=== PATIENT | male | born 1950 | race Caucasian/White ===

== ENCOUNTER → 2022-06-15 11:00 | Outpatient (CLI) | payer MEDICARE, SELFPAY ==
--- NOTE | ~2022-06-15 | CT_ITS ---
EXAMINATION: CT soft tissue neck wo con DATE: 06/15/2022 11:20 INDICATION: Right-sided otalgia. Pain at the right angle of the mandible. TECHNIQUE: Computed tomography (CT) of the neck was performed without intravenous contrast. Automated exposure control and iterative reconstruction technique were employed. The dose-length product was 4 35.74 mGy-cm. COMPARISON: None FINDINGS: The parotid glands are normal. There are no pathologically enlarged lymph nodes. The parana tawana sinuses are clear. The mastoid air cells are normal. 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 There is severe cervical spondylosis. No untreated dental disease is identified. IMPRESSION: 1. No specific etiology for the patient's symptoms. Reviewed, dictated and finalized at location A.
== END ==
PROVIDERS: PCP Internal Medicine; Visit Provider Otolaryngology
DX: H92.01 Otalgia, right ear (principal)
CPT/HCPCS: 70490

== ENCOUNTER 2025-02-04 10:10 | Day surgery (SDC) | payer MEDICARE, SELFPAY ==
[2025-01-14 11:50] VITALS: BMI 21.1
--- NOTE | 2025-02-04 07:08 | WPDANESEPPF ---
Anes - Initial Pre Proc Eval Procedure: Operation Date: 02/04/25 12:00 Proposed Procedures p Diagnostic Colonoscopy - David Roberson MD Date/Time: 02/04/25 07:08 Surgeon: David Roberson MD Pre Op Diagnosis: Family History of Colon Cancer Patient Data Age: 74 Gender: M Height: 1.79 m Weight: 67.8 kg Allergies Allergy/AdvReac Type Severity Reaction Status Date / Time No Known Allergies Allergy Verified 02/04/25 10:37 Home Medications ?Medication ?Instructions ?Recorded ?Confirmed ?Type No Home Medications 01/14/25 01/14/25 History Patient hx anesthesia problems: none Family hx anesthesia problems: none Results Review: All pre-operative results and documents have been reviewed as part of the pre-operative evaluation. [facility] Family History Family History (Updated 02/09/16 @ 13:29 by DOCTOR UNKNOWN) Mother Family history of rheumatoid arthritis Family history of heart disease in male family member before age 55 Patient's mother is Father Carcinoma of colon Patient's father is Social History Social History (Updated 02/04/25 @ 12:19 by Rosalio Marsh, ) Smoking status: Never smoker Second hand tobacco smoke exposure: No Alcohol intake: current Substance use: current Substance use type: does not use and marijuana Other substance usage details: occasional Living arrangements: with family Spiritual care concerns: No Anes - Eval Final PreProcedure Day of Procedure 02/04/25 07:08 Patient weight: normal Heart: regular rate and rhythm Lungs: clear to auscultation and normal air movement Airway: Mallampati scale class II Neurological: alert and oriented Last oral intake: >/= 8 hours ASA classification: II Emergent: no Anesthetic plan: proceed Anesthesia type and monitoring: general GIVS and standard monitoring Results Review: All pre-operative results and documents have been reviewed as part of the pre-operative evaluation. Informed Consent: The patient's anesthetic plan and its attendant risks and benefits were discussed with the patient/family/POA. Questions were solicited and answers provided to the satisfaction of the patient/family/POA.
[2025-02-04 10:48] VITALS: BP 108/71; PULSE 65; RESP 16; TEMP 36.5; O2SAT 99; BMI 20.9
[2025-02-04] MEDS: LACTATED RINGERS 1,000 ML 150 ML IV CONT (11:01)
--- OUTSIDE RECORDS SUMMARY | 2025-02-04 11:54 | XMS_ITS | Referral Summary ---
Author Organization [facility] Address [address] [place] [address] Care Team Providers Care Lens Coating Technician Name Role Phone Shawn Nails MD Primary Care Located within [facility] Encounters Date Type Department Care Team Description 01/27/2025 Results Follow-Up [facility] Primary Care at [address] [phone] Shawn Nails MD 01/24/2025 8:24 AM CDT - 01/24/2025 11:59 PM CDT Hospital Encounter [address] [address] Screening for hyperlipidemia; Screening for diabetes mellitus Discharge Disposition: Discharge to home or self care 01/24/2025 8:30 AM CDT Lab [facility] Outpatient Lab at [address] [phone] Osteoarthritis of knee (Primary Dx) 01/07/2025 1:30 PM CDT Office Visit [facility] Primary Care at [address] [phone] Shawn Nails MD Encounter to establish care with new doctor (Primary Dx); Need for tetanus booster; Screening for hyperlipidemia; Screening for diabetes mellitus from Last 3 Months Allergies No known active allergies Medications No known medications Active Problems Problem Noted Date Diagnosed Date Encounter to establish care with new doctor 12/16 Need for tetanus booster 01/07/2025 Acute medial meniscus tear of right knee 019 Overview (01/18/2019): Added automatically from request for surgery [id number] Osteoarthritis of knee 11/25/2016 Immunizations Immunization Administration Dates Next Due Influenza, Quad, Adjuvantate d, Intramuscular 07/31/2021 Influenza, Quadrivalent, Nicole l Culture-based MDCK, Preservative Free, Antibiotic Free, Intramuscular 07/15/2020 Influenza, Trivalent, Adjuva nted, Intramuscular 08/02/2018 Pneumococcal Polysaccharide PPV23 07/31/2021 ZOSTER Recombinant 08/02/2018,05/09/2018, 018 Social History Tobacco Use Types Packs/Day Years Used Date Smoking Tobacco: Never Smokeless Tobacco: Never Alcohol Use Standard Drinks/Week Comments Yes 2 (1 standard drink = 0.6 oz pur e alcohol) PHQ-2 Answer Date Recorded PHQ-2 Total Score (If total score is 3 or more points, staff should administer the PHQ-9) 0 01/07/2025 Sex and Gender Information Value Date Recorded Sex Assigned at Not on file 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 Gender Identity Not on file Sexual Orientation Not on file Last Filed Vital Signs Vital Sign Reading Time Taken Comments Blood Pressure 98/62 01/07/2025 12:52 PM CDT Pulse 57 01/07/2025 12:52 PM CDT Temperature 36.2 C (97.2 F) 01/07/2025 12:52 PM CDT Respiratory Rate 16 01/07/2025 12:5 2 PM CDT Oxygen Saturation 98% 01/07/2025 12: 52 PM CDT Inhaled Oxygen Concentration - - Weight 69.8 kg (153 lb 14.4 oz) 025 12:52 PM CDT Height 180.3 cm (5' 11 ) 01/07/2025 12: 52 PM CDT Body Mass Index 21.46 01/07/2025 12:52 PM CDT Plan of Treatment Not on file Procedures Procedure Name Priority Date/Time Associated Diagnosis Comments EGFR Routine 01/24/2025 8:17 PM CDT Screening for diabetes mellitus COMPREHENSIVE METABOLIC PANEL Routine 01/24/2025 8:17 PM CDT Screening for diabetes mellitus LIPID PANEL Routine 01/24/2025 8:17 PM CDT Screening for hyperlipidemia from Last 3 Months Results * eGFR (01/24/2025 8:17 PM CDT) eGFR 87 >=60 mL/min/1. 73 m2 Comment: Interpretive Data Reference Interval Normal >/= 90 mL/min/1.73m2 Mildly decreased* 60 - 89 mL/min/1.73m2 Mildly to moderately decreased 45 - 59 mL/min/1.73m2 Moderately to severely decreased 30 - 44 mL/min/1.73m2 Severely decreased 15 - 29 mL/min/1.73m2 Kidney Failure < 15 mL/min/1.73m2 *Relative to young adult level Estimated glomerular filtration rate is determined by the 2020 CKD-EPI equation recommended by the National Kidney Foundation (A Unifying Approach to GFR Estimation: Recommendations of the NKF-ASK Task Force on Reassessing the Inclusion of Race in Diagnosing Kidney Disease, JASN 2020). The CKD-EPI equation should not be used for patients with unstable renal function and has not been validated in children and those over 70. Current interpretive data was last reviewed 2021. Blood 01/24/2025 8:17 PM CDT 01/24/2025 8:17 PM CDT Shawn Nails MD LAB BLOOD ORDERABLE S Final Result [facility] [address] Department [place] [address] * Lipid panel (01/24/2025 8:17 PM CDT) Cholesterol 167 30 - 199 mg/dL Comment: Interpretive Data Ages < or = 19 years Acceptable: <170 mg/dL Borderline high: 170-199 mg/dL High: >or= 200 mg/dL Ages > or = 20 years Desirable: <200 mg/dL Borderline high: 200-239 mg/dL High: >or= 240 mg/dL Literature References: 1. Expert Panel on Integrated Guidelines for Cardiovascular Health and Risk Reduction in Children and Adolescents. Pediatrics 2011;128:S213 2. NCEP Expert Panel. Circulation 2004;110:227 Current Interpretive Data was last revised on 2018. Triglycerides 60 <=149 mg/dL [facility] Comment: Interpretive Data Ages < or = 9 years Acceptable: <75 mg/dL Borderline high: 75-99 mg/dL High: >or= 100 mg/dL Ages 10 to 20 years Acceptable: <90 mg/dL Borderline high: 90-129 mg/dL High: >or= 130 mg/dL Ages > or = 20 years Desirable: <150 mg/dL Borderline high: 150-199 mg/dL High: 200-499 mg/dL Very high: >or= 499 mg/dL Literature References: 1. Expert Panel on Integrated Guidelines for Cardiovascular Health and Risk Reduction in Children and Adolescents. Pediatrics 2011;128:S213 2. NCEP Expert Panel. Circulation 2004;110:227 Current Interpretive Data was last revised on 2018. HDL 57 >=40 mg/dL [facility] Comment: Interpretive Data Ages < or = 19 years Acceptable: >45 mg/dL Borderline low: 40-45 mg/dL Low: <40 mg/dL Ages > or = 20 years Desirable: >or= 60 mg/dL Low: <40 mg/dL Literature References: 1. Expert Panel on Integrated Guidelines for Cardiovascular Health and Risk Reduction in Children and Adolescents. Pediatrics 2011;128:S213 2. NCEP Expert Panel. Circulation 2004;110:227 Current Interpretive Data was last revised on 2018. LDL, calculated 98 <=129 mg/dL [facility] Comment: Interpretive Data Ages < or = 19 years Acceptable: <110 mg/dL Borderline high: 110-129 mg/dL High: >or= 130 mg/dL Ages > or = 20 years Optimal: <100 mg/dL Near optimal: 100-129 mg/dL Borderline high: 130-159 mg/dL High: >160 mg/dL Calculated using the Bowles LDL-C estimating equation. This equation was implemented on 2024. Prior to this date LDL-C was estimated using the Friedewald equation. Literature References: 1. Expert Panel on Integrated Guidelines for Cardiovascular Health and Risk Reduction in Children and Adolescents. Pediatrics 2011;128:S213 2. NCEP Expert Panel. Circulation 2004;110:227 3. Wilbur M et al. KALPANA Cardiol. 2020 February 14;5(5):540-548. doi: 10.1001/jamacardio.2020.0013 Current Interpretive Data was last revised on 2024. Non-HDL Cholesterol 110 mg/dL [facility] Comment: Interpretive Data Ages < or = 19 years Acceptable: <120 mg/dL Borderline high: 120-144 mg/dL High: >145 mg/dL Ages > or = 20 years When triglycerides are >200 mg/dL, Non-HDL cholesterol is a secondary target of therapy with treatment goals that are 30 mg/dL greater than the LDL cholesterol target. Literature References: 1. Expert Panel on Integrated Guidelines for Cardiovascular Health and Risk Reduction in Children and Adolescents. Pediatrics 2011;128:S213 2. NCEP Expert Panel. Circulation 2004;110:227 Current Interpretive Data was last revised on 2018. Chol/HDL ratio 3 [facility] Blood 01/24/2025 8:17 PM CDT 01/24/2025 8:17 PM CDT us Shawn Nails MD LAB BLOOD ORDERABLE S Final Result [facility] [address] Department [place] [address] * Comprehensive metabolic panel (01/24/2025 8:17 PM CDT) Sodium 142 135 - 145 mmol/L Potassium, pl 4.3 3.3 - 4.9 mmol/L [facility] Chloride 107 97 - 110 mmol/L [facility] CH CO2 28 22 - 32 mmol/L [facility] CH Anion gap 7 2 - 15 mmol/L [facility] BUN 14 6 - 25 mg/dL [facility] Creatinine 0.93 0.80 - 1.30 mg/dL [facility] Glucose 95 70 - 199 mg/dL [facility] Comment: Interpretive Data Fasting glucose >/= 126 mg/dl is diagnostic for diabetes. Fasting is defined as no caloric intake for at least 8 hours. Fasting glucose between 100 mg/dl to 125 mg/dl is diagnostic of prediabetes. In a patient with classic symptoms of hyperglycemia or hyperglycemic crisis, a random glucose >/= 200 mg/dl is diagnostic for diabetes. In the absence of unequivocal hyperglycemia, results should be confirmed by repeat testing. The classification and Diagnosis of Diabetes Diabetes Care 202; 46: S19-S40. Current interpretive data was last revised 2022. Calcium 9.2 8.5 - 10.3 mg/dL [facility] Bilirubin, total 0.6 0.1 - 1.2 mg/dL [facility] CH Protein, pl 6.8 6.5 - 8.5 g/dL [facility] CH Albumin 4.2 3.5 - 5.0 g/dL [facility] CH Alk phos 66 40 - 130 Units/L [facility] CH ALT 21 7 - 55 Units/L [facility] CH AST 24 10 - 50 Units/L [facility] CH Blood 01/24/2025 8:17 PM CDT 01/24/2025 8:17 PM CDT Shawn Nails MD LAB BLOOD ORDERABLE S Final Result [facility] [address] Department [place] [address] from Last 3 Months Insurance [facility] MEDICARE ADVANTAGE [facility] MEDICARE ADVANTAGE [facility] MEDICARE ADVANTAGE Care Teams Lens Coating Technician Relationship Specialty Start Date End Date Shawn Nails MD [address] [place] [address] [place] [address] PCP - General Family Practice 01/07/25
--- OUTSIDE RECORDS SUMMARY | 2025-02-04 11:54 | XMS_ITS | Clinical Summary ---
Author Organization [facility] Address [address] [place] [address] Care Team Providers Care Deicer Kit Assembler Name Role Phone Shawn Nails MD Primary Care Provi elise Allergies No known active allergies Medications No known medications Active Problems Problem Noted Date Diagnosed Date Encounter to establish care with new doctor 12/16 Need for tetanus booster 01/07/2025 Acute medial meniscus tear of right knee 019 Overview (01/18/2019): Added automatically from request for surgery [id number] Osteoarthritis of knee 11/25/2016 Encounters Date Type Department Care Team Description 01/27/2025 Results Follow-Up [facility] Primary Care at [address] [place] [phone] Shawn Nails MD 01/24/2025 8:30 AM CDT Lab [facility] Outpatient Lab at [address] [phone] Osteoarthritis of knee (Primary Dx) 01/24/2025 8:24 AM CDT - 01/24/2025 11:59 PM CDT Hospital Encounter [address] [phone] Screening for hyperlipidemia; Screening for diabetes mellitus Discharge Disposition: Discharge to home or self care 01/07/2025 1:30 PM CDT Office Visit [facility] Primary Care at [address] [place] [phone] Shawn Nails MD Encounter to establish care with new doctor (Primary Dx); Need for tetanus booster; Screening for hyperlipidemia; Screening for diabetes mellitus from Last 3 Months Immunizations Immunization Administration Dates Next Due Influenza, Quad, Adjuvantate d, Intramuscular 07/31/2021 Influenza, Quadrivalent, Nicole l Culture-based MDCK, Preservative Free, Antibiotic Free, Intramuscular 07/15/2020 Influenza, Trivalent, Adjuva nted, Intramuscular 08/02/2018 Pneumococcal Polysaccharide PPV23 07/31/2021 ZOSTER Recombinant 08/02/2018,05/09/2018, 018 Surgical History Surgery Date Site/Laterality Comments TONSILLECTOMY MENISCECTOMY 10/17/2012 - 10/16/2013 Left left PROSTATE SURGERY 10/17/2007 - 10/16/2008 robotic surgery KNEE ARTHROSCOPY KNEE ARTHROSCOPY W/ LATERAL RELEASE 2017 VASECTOMY 1998 Medical History Medical History Date Comments Arthritis Cancer () prostate (2007) Skin cancer 2024 Family History Medical History Relation Name Comments Arthritis Father Aquilino Family history of arthritis - (Added by TW Conv) Cancer Father [place] Family history of malignant neoplasm - (Added by TW Conv) Arthritis Mother Amarilis Family history of arthritis - (Added by TW Conv) Relation Name Status Comments Father Aquilino Mother Amarilis Social History Tobacco Use Types Packs/Day Years [...] on file 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 Gender Identity Not on file Sexual Orientation Not on file Obstetrics History Last Filed Vital Signs Vital Sign Reading [...] 01/07/2025 12:52 PM CDT Plan of Treatment Health Maintenance Due Date Last Done Comments Colon Cancer Screening-Colonoscopy 1950 Fall Risk Assessment 1950 Hepatitis C Screening 1950 DTaP/Tdap/Td Vaccine (1 - Tdap) 1963 Hepatitis B Screening 1970 Well Visit 65+ 2017 Pneumococcal vaccine 65+ (2 of 2 - PCV) 07/31/2022 07/31/2021 Covid-19 Vaccine ( season) 2024 08/12/2021, 01/05/2021, 12/04/2020 Influenza Vaccine (Season Ended) 2025 07/31/2021, 07/15/2020, 08/02/2018 Depression Screening 01/07/2026 01/07/2025 Zoster Vaccine Completed 08/02/2018, 04/17, 05/08/2018 Procedures Procedure Name Priority Date/Time Associated Diagnosis [...] of Race in Diagnosing Kidney Disease, JASN 202). The CKD-EPI equation should not be used for patients with unstable renal function and has not been validated in children and those over 70. Current interpretive data was last reviewed 2021. Blood 01/24/2025 8:17 PM CDT 01/24/2025 8:17 PM CDT us Shawn Nails MD LAB BLOOD ORDERABLE S Final Result [facility] [address] Department [place] [address] * Lipid panel (01/24/2025 8:17 PM CDT) [...] on 2018. Triglycerides 60 <=149 mg/dL [facility] Comment: Interpretive Data Ages < or = [...] on 2018. HDL 57 >=40 mg/dL [facility] Comment: Interpretive Data Ages < or = [...] 2018. LDL, calculated 98 <=129 mg/dL [facility] Comment: Interpretive Data Ages < or = 19 years Acceptable: <110 mg/dL Borderline high: 110-129 mg/dL High: >or= 130 mg/dL Ages > or = 20 years Optimal: <100 mg/dL Near optimal: 100-129 mg/dL Borderline high: 130-159 mg/dL High: >160 mg/dL Calculated using the Wilbur LDL-C estimating equation. This equation was implemented on 2024. Prior to this date LDL-C was estimated using the Friedewald equation. Literature References: 1. Expert Panel on Integrated Guidelines for Cardiovascular Health and Risk Reduction in Children and Adolescents. Pediatrics 2011;128:S213 2. NCEP Expert Panel. Circulation 2004;110:227 3. Wilbur Yip al. KALPANA Cardiol. 2019February 14;5(5):540-548. doi: 10.1001/jamacardio.2020.0013 Current Interpretive Data was last revised on 2024. Non-HDL Cholesterol 110 mg/dL [facility] Comment: Interpretive Data Ages < or = [...] revised on 2018. Chol/HDL ratio 3 [facility] CH Blood 01/24/2025 8:17 PM CDT 01/24/2025 8:17 PM CDT us Shawn Nails MD LAB BLOOD ORDERABLE S Final Result [facility] [address] [place] [address] * Comprehensive metabolic panel (01/24/2025 8:17 PM CDT) Sodium 142 135 - 145 mmol/L Potassium, pl 4.3 3.3 - 4.9 mmol/L [facility] Chloride 107 97 - 110 mmol/L [facility] CH CO2 28 22 - 32 mmol/L [facility] Anion gap 7 2 - 15 mmol/L [facility] CH BUN 14 6 - 25 mg/dL [facility] Creatinine 0.93 0.80 - 1.30 mg/dL [facility] Glucose 95 70 - 199 mg/dL [facility] Comment: Interpretive Data Fasting glucose >/= 126 [...] classification and Diagnosis of Diabetes Diabetes Care 2021; 46: S19-S40. Current interpretive data was last [...] MD LAB BLOOD ORDERABLE S Final Result Performing Organization Address City/State/[facility] Co de Phone Number [facility] [address] [place] [address] from Last 3 Months Insurance [address] [facility] [place] [id number] UHC MEDICARE ADVANTAGE [facility] MEDICARE Address: [place] [id number] [place] [id number] [address] [employer] [address] [place] [phone] UHC MEDICARE ADVANTAGE [facility] MEDICARE Address: [address] [address] [place] [address] [facility] MEDICARE ADVANTAGE [facility] MEDICARE Address: [facility] [address] [place] [address] Care Teams Deicer Kit Assembler Relationship Specialty Start Date End Date Shawn Nails MD [address] [place] [facility] [address] [place] [address] PCP - General Family Practice 01/07/25
--- NOTE | 2025-02-04 12:17 | P.HP_ITS ---
H&P: HPI History of Present Illness Date/Time: 02/04/25 12:17 Chief Complaint: family history of colon cancer Narrative: This patient has family history of colorectal cancer. his father had colorectal cancer, he does not know at what age. The patient had a screening colonoscopy 8 years ago, reportedly normal. Review of Systems Review of Systems: All systems reviewed & are unremarkable except as noted in HPI and below PMFSH Family History Family History (Updated 02/09/16 @ 13:29 by DOCTOR UNKNOWN) Mother Family history of rheumatoid arthritis Family history of heart disease in male family member before age 55 Patient's mother is Father Carcinoma of colon Patient's father is Social History Social History Smoking status: Never smoker Second hand tobacco smoke exposure: No Alcohol intake: current Substance use: never Substance use type: does not use Living arrangements: with family Spiritual care concerns: No Meds Home Medications and Allergies Home Medications ?Medication ?Instructions ?Recorded ?Confirmed ?Type No Home Medications 01/14/25 01/14/25 History Allergies Allergy/AdvReac Type Severity Reaction Status Date / Time No Known Allergies Allergy Verified 02/04/25 10:37 Vital Signs Vital Signs - 24 hr 02/04/25 10:48 Temperature 97.7 F Pulse Rate 65 Respiratory Rate 16 Blood Pressure 108/71 Pulse Oximetry 99 Oxygen Delivery Room Air Exam Const: General: cooperative and healthy appearing Resp: Effort & Inspection: normal respiratory effort and able to speak in complete sentences Auscultation: clear to auscultation bilaterally Cardio: Rate: regular rate Rhythm: regular rhythm GI: Inspection: normal to inspection GI Palp: No No hepatosplenomegaly present Auscultation: normal bowel sounds Rectal Exam: deferred Skin: General skin exam: normal color Psych: Appearance: grossly normal Mental Status: mental status grossly normal Assessment and Plan Assessment and plan (1) Family history of colon cancer: Code(s): Z80.0 - Family history of malignant neoplasm of digestive organs Status: Acute Assessment and Plan: The patient is deemed a good candidate for the procedure. Consent signed. Raymond zabala
[2025-02-04 12:49] VITALS: BP 98/65; PULSE 68; RESP 14; O2SAT 97
--- NOTE | 2025-02-04 12:51 | WPDANESPN ---
Anes - Prog Note Post-Op Date/Time: 02/04/25 12:51 Cardiovascular status: normal Respiratory status: normal Airway patency: baseline Mental status: baseline Post-Op hydration status: normal Vital Signs: Last Vital Signs Temp 36.5 C 02/04/25 10:48 Pulse 65 02/04/25 10:48 Resp 16 02/04/25 10:48 BP 108/71 02/04/25 10:48 Pulse Ox 99 02/04/25 10:48 O2 Del Method Room Air 02/04/25 10:48 Pain Score (VAS): 0 I/O: Intake & Output 02/03/25 02/04/25 02/04/25 23:59 07:59 15:59 Intake Total 700 Balance 700 Post-procedural complaints: none Patient Feedback: Patient satisfied with anesthetic care. Other Findings: Patient vital signs back to baseline. Patient denies nausea and vomiting. Patient's pain under control. Patient OK for discharge.
[2025-02-04 12:59] VITALS: BP 99/68; PULSE 63; RESP 14; O2SAT 98
[2025-02-04 13:09] VITALS: BP 102/64; PULSE 62; RESP 16; O2SAT 100
== END 2025-02-04 13:25 | disposition home or self-care (01) ==
PROVIDERS: Visit Provider Internal Medicine Gastroenterology
PROC: 0DJD8ZZ Inspection of Lower Intestinal Tract, Via Natural or Artificial Opening Endoscopic (ICD-10-PCS; CPT 45378; principal; 2025-02-04 12:00)
DX: Z12.11 Encounter for screening for malignant neoplasm of colon (principal); K64.8 Other hemorrhoids; Z80.0 Family history of malignant neoplasm of digestive organs
CPT/HCPCS: G0105